=== PATIENT | female | born 1990 | race Caucasian/White ===

== ENCOUNTER 2016-08-10 16:57 | Emergency (ER) | payer OTHER ==
[~2016-08-10] VITALS: Ht 177.8 cm; Wt 122.2 kg
[~2016-08-10 16:57] MED LIST: ALBU1AER9 INH
[2016-08-10 16:59] VITALS: Ht 177.8 cm; Wt 122.2 kg
[2016-08-10] MEDS ORDERED: ONDANSETRON INJ 2 MG/ML 2 ML VIAL IV STA (17:15)
[2016-08-10] MEDS ORDERED: MoRPHine SULFATE 10 MG/ML CARP/VIAL IV STA (17:15)
[2016-08-10] MEDS ORDERED: KETOROLAC TROMETHAMINE 30 MG/ML VIAL IV STA (17:15)
[2016-08-10] MEDS ORDERED: SODIUM CHLORIDE 0.9% 1000ML 1,000 ML IV STA (17:15)
[2016-08-10 17:49] LABS: BASO % 0.3 %; BASO ABS # 0.02 K/uL (0-0.2); COMPLETE YES; EOS % 1.1 %; IG% 0.3 %; LYMPH % 29.8 %; LYMPH ABS # 1.96 K/uL (1.2-3.4); MEAN CORPUSCULAR HEMOGLOBIN 28.7 pg (25-34); MEAN CORPUSCULAR HGB CONC 32.9 g/dl (32-36); MEAN PLATELET VOLUME 11.1 fL (7.4-10.4); MONO % 6.8 %; NEUT % 61.7 %; PLATELET COUNT 230 K/uL (130-400); RED BLOOD COUNT 4.71 M/uL (4.2-5.4); WHITE BLOOD COUNT 6.57 K/uL (4.8-10.8)
[2016-08-10 18:00] LABS: URINE APPEARANCE CLOUDY (CLEAR); URINE BILIRUBIN NEG (NEG); URINE COLOR DK YELLOW; URINE EPITHELIAL CELL AUTO >30 /lpf (0-5); URINE NITRITE NEG (NEG); URINE PH 5.5 (4.5-7.5); URINE SPECIFIC GRAVITY 1.028 (1.000-1.030); UROBILINOGEN NEG (NEG)
[2016-08-10] MEDS ORDERED: MoRPHine SULFATE 4 MG/ML 1 ML CARP\\VIAL ONE (18:00)
[2016-08-10] MEDS ORDERED: MoRPHine SULFATE 2 MG/ML CARP ONE (18:01)
[2016-08-10 18:03] LABS: MANUAL MICROSCOPIC REQUIRED? NO; REVIEW REQ? YES
--- NOTE | 2016-08-10 18:04 | DIAGNOSTIC IMAGING REPORT ---
CT SCAN OF THE ABDOMEN AND PELVIS WITHOUT IV CONTRAST CLINICAL HISTORY: Right flank pain. COMPARISON STUDY: Abdominal CT dated 08/14/2013. TECHNIQUE: CT scan of the abdomen and pelvis is performed from the lung bases to the proximal femora. Images are reviewed in the axial, sagittal, and coronal planes. IV contrast was not administered for this examination. Automated dose control exposure was utilized. The examination is degraded by large body habitus, and by streak artifact from the body wall abutting the CT gantry. CT DOSE: 2202.03 mGy.cm FINDINGS: Lung bases: The heart is normal in size and without pericardial effusion. The lung bases are clear noting dependent atelectasis. Liver: The unenhanced liver is normal in size, contour, and attenuation. There is no intrahepatic biliary ductal dilatation. Gallbladder: Unremarkable. Spleen: Normal in size and attenuation. Pancreas: Unremarkable. Adrenal glands: Unremarkable. Kidneys: The unenhanced kidneys are normal in size and without hydronephrosis. There are no renal calculi identified. There is no evidence of contour deforming renal mass lesion. Abdominal vasculature: The abdominal aorta is normal in course and caliber. Bowel: The small bowel and colon are normal in course and caliber. The appendix is well-visualized and normal. Peritoneum: There is no intraperitoneal free air or abdominal ascites. There is a small fat-containing umbilical hernia. Lymphadenopathy: None. Pelvic viscera: The bladder, uterus, and adnexa are normal as visualized. There are bilateral ovarian follicles. A 4.0 cm cyst is noted in the left ovary. Skeletal structures: No lytic or blastic lesions are seen. Mild sclerotic change is noted involving the sacroiliac joints. IMPRESSION: 1. There are no acute infectious or inflammatory findings in the abdomen or pelvis. 2. A 4.0 cm cyst is incidentally noted in the left ovary. Electronically signed by: Jose Burger M.D. 08/10/2016 6:03 PM Dictated Date/Time: 08/10/2016 5:56 PM
[2016-08-10 18:12] LABS: ZZUR CULT IF INDIC CLEAN CATCH YES
[2016-08-10 18:18] LABS: CALCIUM 8.8 mg/dl (8.5-10.1); CREATININE 0.82 mg/dl (0.60-1.20); POTASSIUM 3.3 mmol/L (3.5-5.1)
[2016-08-10] MEDS ORDERED: ONDANSETRON HOME PACK 4MG OD TAB PO ONE (18:30)
[2016-08-10] MEDS ORDERED: NITR-5 PO (18:33)
--- NOTE | 2016-08-10 18:33 | EMERGENCY ROOM VISIT NOTE ---
History First contact with patient: 17:09 Chief Complaint: GI ASSESSMENT Stated Complaint: PAIN IN LOWR RT SIDE OF BACK Nursing Triage Summary: right abdominal pain for the past several days. denies n/v/d. History of Present Illness The patient is a 25 year old female who presents to the Emergency Room with complaints of right lower back pain for the past several days but it is worse today. The patient denies any abdominal pain. She does admit to some nausea but denies any vomiting. The patient denies any fever. The patient admits to urinary frequency but denies any urgency dysuria or hematuria. The patient denies any trauma to her back. The patient does have a history of ovarian cyst. The patient denies any family history of kidney stones or any personal history of kidney stones. The patient has not had any abdominal surgeries. She currently rates the pain at an 8 out of 10. Review of Systems 10 system review was performed and was negative unless stated otherwise history of present illness. Past Medical/Surgical History Medical Problems: (1) Abdominal pain (2) Asthma (3) Bronchitis (4) Face chilel (5) Migraines (6) Ovarian cyst (7) Pyelonephritis (8) Tonsillectomy (9) UTI Social History Smoking Status: Never Smoker Alcohol Use: none Drug Use: none Marital Status: single Housing Status: lives with family Occupation Status: employed Current/Historical Medications Scheduled PRN Albuterol (Proair Hfa), 2 PUFFS INH Q4H PRN for Shortness of Breath Allergies Coded Allergies: Amoxicillin (Verified Allergy, Unknown, AMOXICILLIN/PENICILLIN, 03/13/15) Penicillins (Verified Allergy, Unknown, HIVES, 03/13/15) Codeine (Verified Adverse Reaction, Mild, NAUSEA, 03/13/15) Physical Exam Vital Signs Date Time Temp Pulse Resp B/P Pulse Ox O2 Delivery O2 Flow Rate FiO2 08/10/16 16:59 36.7 73 18 136/89 99 Room Air Physical Exam GENERAL: 25-year-old obese white female appears in no acute distress. MENTAL Status: Alert and oriented 3. EYES: No icterus noted MOUTH: Mucosa is moist NECK: Supple, no lymphadenopathy noted. No carotid bruits noted. LUNGS: Clear auscultation without wheezes rales or rhonchi. CARDIAC: Regular rate and rhythm without murmur. Pulses is full and equal throughout. BACK: No CVA tenderness noted. ABDOMEN: Positive bowel sounds all 4 quadrants. Soft, nontender to palpation without organomegaly or masses. LUMBAR SPINE: No gross bony deformity noted. The patient is nontender to palpation over the spinous processes in the paravertebral region. Full range of motion. EXTREMITIES: No cyanosis or edema noted. Medical Decision & Procedures ER Provider Diagnostic Interpretation: CT SCAN OF THE ABDOMEN AND PELVIS WITHOUT IV CONTRAST CLINICAL HISTORY: Right flank pain. COMPARISON STUDY: Abdominal CT dated 08/14/2013. TECHNIQUE: CT scan of the abdomen and pelvis is performed from the lung bases to the proximal femora. Images are reviewed in the axial, sagittal, and coronal planes. IV contrast was not administered for this examination. Automated dose control exposure was utilized. The examination is degraded by large body habitus, and by streak artifact from the body wall abutting the CT gantry. CT DOSE: 2202.03 mGy.cm FINDINGS: Lung bases: The heart is normal in size and without pericardial effusion. The lung bases are clear noting dependent atelectasis. Liver: The unenhanced liver is normal in size, contour, and attenuation. There is no intrahepatic biliary ductal dilatation. Gallbladder: Unremarkable. Spleen: Normal in size and attenuation. Pancreas: Unremarkable. Adrenal glands: Unremarkable. Kidneys: The unenhanced kidneys are normal in size and without hydronephrosis. There are no renal calculi identified. There is no evidence of contour deforming renal mass lesion. Abdominal vasculature: The abdominal aorta is normal in course and caliber. Bowel: The small bowel and colon are normal in course and caliber. The appendix is well-visualized and normal. Peritoneum: There is no intraperitoneal free air or abdominal ascites. There is a small fat-containing umbilical hernia. Lymphadenopathy: None. Pelvic viscera: The bladder, uterus, and adnexa are normal as visualized. There are bilateral ovarian follicles. A 4.0 cm cyst is noted in the left ovary. Skeletal structures: No lytic or blastic lesions are seen. Mild sclerotic change is noted involving the sacroiliac joints. IMPRESSION: 1. There are no acute infectious or inflammatory findings in the abdomen or pelvis. 2. A 4.0 cm cyst is incidentally noted in the left ovary. Electronically signed by: Jose Burger M.D. 08/10/2016 6:03 PM Dictated Date/Time: 08/10/2016 5:56 PM Laboratory Results 08/10/16 17:30 Red Blood Count 4.71, Mean Corpuscular Volume 87.0, Mean Corpuscular Hemoglobin 28.7, Mean Corpuscular Hemoglobin Concent 32.9, Mean Platelet Volume 11.1, Neutrophils (%) (Auto) 61.7, Lymphocytes (%) (Auto) 29.8, Monocytes (%) (Auto) 6.8, Eosinophils (%) (Auto) 1.1, Basophils (%) (Auto) 0.3, Neutrophils # (Auto) 4.05, Lymphocytes # (Auto) 1.96, Monocytes # (Auto) 0.45, Eosinophils # (Auto) 0.07, Basophils # (Auto) 0.02 08/10/16 17:30 Test 08/10/16 17:30 White Blood Count 6.57 K/uL (4.8-10.8) Red Blood Count 4.71 M/uL (4.2-5.4) Hemoglobin 13.5 g/dL (12.0-16.0) Hematocrit 41.0 % (37-47) Mean Corpuscular Volume 87.0 fL (80-100) Mean Corpuscular Hemoglobin 28.7 pg (25-34) Mean Corpuscular Hemoglobin Concent 32.9 g/dl (32-36) Platelet Count 230 K/uL (130-400) Mean Platelet Volume 11.1 fL (7.4-10.4) Neutrophils (%) (Auto) 61.7 % Lymphocytes (%) (Auto) 29.8 % Monocytes (%) (Auto) 6.8 % Eosinophils (%) (Auto) 1.1 % Basophils (%) (Auto) 0.3 % Neutrophils # (Auto) 4.05 K/uL (1.4-6.5) Lymphocytes # (Auto) 1.96 K/uL (1.2-3.4) Monocytes # (Auto) 0.45 K/uL (0.11-0.59) Eosinophils # (Auto) 0.07 K/uL (0-0.5) Basophils # (Auto) 0.02 K/uL (0-0.2) RDW Standard Deviation 43.1 fL (36.4-46.3) RDW Coefficient of Variation 13.5 % (11.5-14.5) Immature Granulocyte % (Auto) 0.3 % Immature Granulocyte # (Auto) 0.02 K/uL (0.00-0.02) Urine Color DK YELLOW Urine Appearance CLOUDY (CLEAR) Urine pH 5.5 (4.5-7.5) Urine Specific [place] 1.028 (1.000-1.030) Urine Protein NEG (NEG) Urine Glucose (UA) NEG (NEG) Urine Ketones NEG (NEG) Urine Occult Blood NEG (NEG) Urine Nitrite NEG (NEG) Urine Bilirubin NEG (NEG) Urine Urobilinogen NEG (NEG) Urine Leukocyte Esterase SMALL (NEG) Urine WBC (Auto) 10-30 /hpf (0-5) Urine RBC (Auto) 0-4 /hpf (0-4) Urine Hyaline Casts (Auto) 5-10 /lpf (0-5) Urine Epithelial Cells (Auto) >30 /lpf (0-5) Urine Bacteria (Auto) 2+ (NEG) Anion Gap 12.0 mmol/L (3-11) Est Creatinine Clear Calc Drug Dose 146.4 ml/min Estimated GFR () 113.7 Estimated GFR (Non- 98.1 BUN/Creatinine Ratio 12.0 (10-20) Calcium Level 8.8 mg/dl (8.5-10.1) Total Bilirubin 0.8 mg/dl (0.2-1) Direct Bilirubin 0.1 mg/dl (0-0.2) Aspartate Amino Transf (AST/SGOT) 14 U/L (15-37) Alanine Aminotransferase (ALT/SGPT) 22 U/L (12-78) Alkaline Phosphatase 82 U/L (45-117) Total Protein 7.7 gm/dl (6.4-8.2) Albumin 4.0 gm/dl (3.4-5.0) Lipase 123 U/L (73-393) Medications Administered Medications (Trade) Dose Ordered Sig/Edy Route Start Time Stop Time Status Last Admin Dose Admin Sodium Chloride (Nss 1000ml) 1,000 ml @ 999 mls/hr Q1H1M STAT IV 08/10/16 17:15 08/10/16 18:15 DC 08/10/16 18:05 999 MLS/HR Ondansetron HCl (Zofran Inj) 4 mg NOW STAT IV 08/10/16 17:15 08/10/16 17:17 DC 08/10/16 18:05 4 MG Ketorolac Tromethamine (Toradol Inj) 30 mg NOW STAT IV 08/10/16 17:15 08/10/16 17:17 DC 08/10/16 18:07 30 MG Morphine Sulfate (MoRPHine SULFATE INJ) 4 mg STK-MED ONCE .ROUTE 08/10/16 18:00 08/10/16 18:03 DC 08/10/16 18:09 4 MG Morphine Sulfate (MoRPHine SULFATE INJ) 2 mg STK-MED ONCE .ROUTE 08/10/16 18:01 08/10/16 18:03 DC 08/10/16 18:08 2 MG ED Course The patient was evaluated. IV access was obtained. The patient was given 1 L normal saline wide-open. She was given Toradol 30 mg IV, morphine 6 mg IV and Zofran 4 mg IV. CBC and differential, renal profile, LFTs and lipase levels was ordered. Labs are reviewed and were unremarkable. Urinalysis was ordered. Urine revealed positive leukocytes and bacteria. Culture is pending. CT stone study was ordered and interpreted by the radiologist as above without any acute findings. There was an incidental finding of a 4 cm left ovarian cyst. The patient was informed of all findings including this cyst on her left ovary. The patient was aware she already had 1 but was unaware of the size. The patient was given a Zofran home pack. She was given Macrobid 100 mg by mouth while in the emergency room. The patient was discharged home in stable condition. Medical Decision Differential diagnosis include muscular strain, UTI, pyelonephritis, kidney stone, ovarian cyst Impression Primary Impression: UTI Departure Information Dispostion Home / Self-Care Condition GOOD Prescriptions Nitrofurantoin Monohyd Macrocr (Macrobid) 100 Mg Cap 100 MG PO BID for 7 Days, #14 CAP Prov: Nazia Thompson PA-C 08/10/16 Referrals No Doctor, Assigned (PCP) Forms HOME CARE DOCUMENTATION FORM, IMPORTANT VISIT INFORMATION Patient Instructions ED UTI Cystitis Female, My [facility] Additional Instructions Push fluids. Take Zofran as needed for nausea. Take Macrobid as prescribed. Call in 36 hours for urine culture results if we do not call you. If symptoms persist or worsen, follow with family doctor or return to ER.
[2016-08-10] MEDS ORDERED: NITROFURANTOIN MONOHYDRATE 100 MG CAP PO STA (18:34)
[2016-08-10] MEDS ORDERED: ACET-1256 PO (18:45)
[2016-08-10 19:00] VITALS: BP 126/81; PULSE 77; TEMP 36.7; O2SAT 99
== END 2016-08-10 19:00 | disposition home or self-care (01) ==
LOC: C.EDB 16:58
DX: N39.0 Urinary tract infection, site not specified (principal); J45.909 Unspecified asthma, uncomplicated; N83.202 Unspecified ovarian cyst, left side; Z87.440 Personal history of urinary (tract) infections; Z88.0 Allergy status to penicillin; Z88.1 Allergy status to other antibiotic agents; Z88.5 Allergy status to narcotic agent

== ENCOUNTER 2016-11-14 18:52 | Emergency (ER) | payer OTHER ==
[~2016-11-14] VITALS: Ht 177.8 cm; Wt 101.4 kg
[~2016-11-14 18:52] MED LIST changes: +ACET-1256 PO
[2016-11-14 19:00] VITALS: BP 143/89; PULSE 72; TEMP 36.9; O2SAT 100; Ht 177.8 cm; Wt 101.4 kg
[2016-11-14] MEDS ORDERED: TRAM-10 PO (19:27)
[2016-11-14] MEDS ORDERED: TRAMADOL HCL 50 MG HOME PACK PO ONE (19:30)
--- NOTE | 2016-11-14 21:00 | EMERGENCY ROOM VISIT NOTE ---
ED Visit Note First contact with patient: 19:10 CHIEF COMPLAINT: Toothache. HISTORY OF PRESENT ILLNESS: Ms. Quiroz is a 26-year-old white female who ambulates into the ED accompanied by male friend complaining of left mandibular dental pain. She reports a progressive dental pain for that started approximately 3 days ago. Since that time her pain has been constant and has gradually increased in severity. Currently she currently describes her discomfort as a throbbing sensation. Her pain is actually located over the lateral aspect of the left side of the mandible, and not one specific tooth. She rates her discomfort 9/10. Her.is pain does radiate through the teeth, down the lateral aspect of the neck and into the top of the left upper chest. Her pain worsens with chewing and exposure hot and cold foods. She has not identified any alleviating factors related to the pain. She has been using Anbesol and ibuprofen without relief of her discomfort. She denies any associated symptoms including fevers, chills , sweats, facial swelling, sore throat, difficulty swallowing, voice changes, drooling. REVIEW OF SYSTEMS: As noted above in History of Present Illness. 8 body systems were reviewed with this patient and found to be negative unless noted above otherwise. PMH: Asthma, unspecified eye surgery and tonsillectomy. CURRENT MEDICATION: Albuterol, Tylenol. ALLERGIES TO MEDICATION: Penicillin, codeine. SOCIAL HISTORY: Patient is currently employed; she feels safe in her home environment; she denies tobacco use; she admits to alcohol use. PHYSICAL EXAM: Vital Signs: Date Time Temp Pulse Resp B/P Pulse Ox O2 Delivery O2 Flow Rate FiO2 11/14/16 19:00 36.9 72 18 143/89 100 Room Air General: 26 year-old white female in mild to moderate distress due to pain, nontoxic appearing, afebrile and hemodynamically stable. Neurological: Awake, alert and oriented to person, place and time. Answering questions appropriately and following commands. Normal gait. Good hand eye coordination. No focal motor or sensory deficits. Skin: Warm, dry and pink. No soft tissue lesions, rashes, or trauma noted. HEENT: Atraumatic and normocephalic. Oral cavity is moist and pink. Uvula is midline and no abscesses are seen. Airway is patent. Speech is normal. No drooling. No intraoral trauma is noted. Mild dental decay is noted over the left sided molars of the mandible. No abscesses, erythema or edema identified. No cervical or submandibular lymphadenopathy. ED COURSE: Patient is assessed as noted above. Patient is educated about she findings and instructed on her treatment plan; she verbalizes understanding and agreement with this plan. CLINIC IMPRESSION: Dental pain. DISPOSITION: Patient discharged home in stable condition; prior to departure she was reassessed and subjectively reported she was feeling the same. PLAN: Comfort measures were discussed were discussed with the patient including a prescription for Ultram, use of dental wax. Patient was encouraged to followup with personal dentist for definitive care and treatment. Patient was encouraged to return the ED for worsening/uncontrolled pain, facial swelling or fevers or any new/concerning symptoms.
== END 2016-11-14 19:38 | disposition home or self-care (01) ==
LOC: C.EDB 18:52 → C.EDD 19:38
DX: K08.89 Other specified disorders of teeth and supporting structures (principal); J45.909 Unspecified asthma, uncomplicated; Z98.890 Other specified postprocedural states; Z88.0 Allergy status to penicillin; Z88.5 Allergy status to narcotic agent

== ENCOUNTER 2017-06-07 13:17 | Emergency (ER) | payer OTHER ==
[~2017-06-07] VITALS: Ht 177.8 cm; Wt 124.8 kg
[2017-06-07 13:27] VITALS: TEMP 36.9; Ht 177.8 cm; Wt 124.8 kg
[2017-06-07] MEDS ORDERED: KETOROLAC TROMETHAMINE 60 MG/2 ML VIAL IM STA (13:53)
[2017-06-07] MEDS ORDERED: CYCLOBENZAPRINE HCL 10 MG TAB PO STA (13:53)
[2017-06-07] MEDS ORDERED: CYCL10TA6 PO (14:43)
--- NOTE | 2017-06-07 14:44 | EMERGENCY ROOM VISIT NOTE ---
ED Visit Note First contact with patient: 13:31 CHIEF COMPLAINT:Low back pain after lifting injury at work this morning HISTORY OF PRESENT ILLNESS: Patient is a 26-year-old white female who presents to the emergency department for evaluation of left low back pain. She states the pain started this morning at work. 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 She rates her pain a 7/10. She took ibuprofen, and applied icy hot with minimal relief. She is a history of scoliosis, but otherwise denies chronic back pain. The pain is worse with movement, particularly bending over, or standing upright. Denies any bowel or bladder difficulties. There has been no leg numbness or weakness. No recent direct trauma. No vomiting or abdominal pain. REVIEW OF SYSTEMS: Review of systems as per HPI. All other systems reviewed were negative. 10 systems reviewed. PMH: Electronic medical records are reviewed and summarized as above/below. See Problem List. SOCIAL HISTORY: Patient lives at home with her and son. She does not smoke. She is employed. PHYSICAL EXAM: Vital Signs: Reviewed Nurse's notes. MENTAL STATUS: Patient is a well-appearing 26-year-old white female who is awake and alert and seated upright on the gurney in not acute distress. She is guarded with her movements. HEART: Regular rate and rhythm LUNGS: Clear to auscultation ABDOMEN: Soft, non-tender, no masses or organs felt. Bowel sounds normoactive. BACK: Tenderness in the left low thoracic-upper lumbar paraspinous muscles, as well as over the left posterior hemipelvis. Range of motion is limited secondary to discomfort. She has increased pain with flexion, rotation and lateral bending to the left. No tenderness over the spinous processes of the lumbar vertebrae. LEGS: Normal strength including dorsi-flexion and plantar flexion of the great toes and ankles, flexion and extension of the knees and flexion of the hip. Negative bilateral straight leg raising, normal and symmetrical knee and ankle reflexes. Sensation to light touch is intact over the lower extremities. EMERGENCY DEPARTMENT COURSE: Patient was medicated with IM Toradol 60 mg and Flexeril 10 mg orally. On reassessment, she reported that her pain had improved. She rated it a 4/10 at discharge. I suspect she is suffering from a lumbar strain. She has no physical exam findings to indicate acute cord compression or cauda equina syndrome. She does not have any direct trauma to the back and therefore it was not felt that any radiographs were necessary at this time. She has no radicular symptoms. Conservative care measures were discussed. She was discharged home on Flexeril. She will follow closely with her worker's compensation provider. Medication reconciliation: I attest that I have personally reviewed the patient' s current medication list. Blood pressure screening: Patient was found to have a slightly elevated blood pressure due to circumstances. I do not believe that the patient requires hypertension monitoring. Problem List Medical Problems: (1) Abdominal pain Status: Resolved (2) Acute low back pain Status: Resolved (3) Ankle sprain Status: Resolved (4) Asthma Status: Chronic (5) Bronchitis Status: Resolved (6) Face chilel Status: Resolved (7) Migraines Status: Chronic (8) Ovarian cyst Status: Resolved (9) Pain, dental Status: Resolved (10) Pyelonephritis Status: Resolved (11) Tonsillectomy Status: Resolved (12) UTI Status: Resolved Current/Historical Medications Scheduled PRN Cyclobenzaprine Hcl (Flexeril), 10 MG PO TID PRN for Muscle Spasms Allergies Coded Allergies: Amoxicillin (Verified Allergy, Unknown, AMOXICILLIN/PENICILLIN, 06/07/17) Penicillins (Verified Allergy, Unknown, HIVES, 06/07/17) Codeine (Verified Adverse Reaction, Mild, NAUSEA, 06/07/17) Vital Signs Date Time Temp Pulse Resp B/P (MAP) Pulse Ox O2 Delivery O2 Flow Rate FiO2 06/07/17 15:00 73 16 151/93 97 06/07/17 13:27 36.9 83 16 141/83 99 Room Air Medications Administered Medications (Trade) Dose Ordered Sig/Edy Route Start Time Stop Time Status Last Admin Dose Admin Ketorolac Tromethamine (Toradol Inj) 60 mg NOW STAT IM 06/07/17 13:53 06/07/17 13:54 DC 06/07/17 14:00 60 MG Cyclobenzaprine HCl (Flexeril Tab) 10 mg NOW STAT PO 06/07/17 13:53 06/07/17 13:54 DC 06/07/17 13:59 10 MG Departure Information Impression Primary Impression: Back strain Additional Impression: Work related injury Prescriptions Cyclobenzaprine Hcl (FLEXERIL) 10 Mg Tab 10 MG PO TID Y for Muscle Spasms, #30 TAB Prov: Ruth Cosme PA 06/07/17 Referrals No Doctor, Assigned (PCP) Patient Instructions My [facility] Additional Instructions DO NOT drive, drink alcohol, operate machinery, or perform dangerous activities today. You were given medications in the ER that can affect your ability to safely function or operate a vehicle. Cyclobenzaprine (Flexeril) 10 mg: Take 1 pills 3 times daily as needed for muscle spasms.. Avoid alcohol, operating machinery or dangerous equipment, working on ladders or roofs, DRIVING, or situations where being under the influence may be dangerous. Ibuprofen(Motrin, Advil) may be used for fever or pain. Use 600mg every six hours as needed. Take with food. Avoid using more than 2400mg in a 24 hour period. Do not use 2400mg per day for more than three consecutive days without physician direction. Prolonged inappropriate use can lead to stomach upset or ulcers. This medication can be taken if you need to drive, work, or perform activities which may be dangerous when taking narcotic pain medication. (AND/OR) Acetaminophen(Tylenol) may be used for fever or pain. Use 1000mg every six hours as needed. Avoid using more than 3000mg in a 24 hour period. This medication can be taken if you need to drive, work, or perform activities which may be dangerous when taking narcotic pain medication. Rest and avoid heavy lifting until your symptoms resolve and then gradually return to full activity. A good rule of thumb is if it hurts your back to perform a certain activity, then it should be avoided until you are healthy again. A heating pad, warm compresses, or a hot shower may help with tight muscles and can be done several times a day as needed. Continue current medications. Return to the ER immediately for any numbness, tingling, severe pain, loss of control of your bowels or bladder, inability to walk, or as needed. Follow up with your worker's compensation physician within 3-5 days for a recheck of your current condition. Problem Qualifiers
[2017-06-07 15:00] VITALS: BP 151/93; PULSE 73; O2SAT 97
== END 2017-06-07 15:01 | disposition home or self-care (01) ==
LOC: C.EDB 13:19 → C.EDD 15:01
DX: S39.012A Strain of muscle, fascia and tendon of lower back, initial encounter (principal); X50.9XXA Other and unspecified overexertion or strenuous movements or postures, initial encounter; Y93.F9 Activity, other caregiving; Y99.0 Civilian activity done for income or pay; Y92.129 Unspecified place in nursing home as the place of occurrence of the external cause; J45.909 Unspecified asthma, uncomplicated; Z87.440 Personal history of urinary (tract) infections; Z90.89 Acquired absence of other organs

== ENCOUNTER 2019-01-10 15:54 | Inpatient (IN) ==
[2019-01-10] MEDS ORDERED: KETOROLAC TROMETHAMINE 15 MG/ML VIAL IV ONE (17:50)
[2019-01-10] MEDS ORDERED: ONDANSETRON INJ 2 MG/ML 2 ML VIAL IV STA (17:50)
--- NOTE | 2019-01-10 18:00 | XRay Report ---
XR chest 1V portable CLINICAL HISTORY: Chest pain. COMPARISON STUDY: Chest radiograph and chest CT May 26, 2011. FINDINGS: Lung volumes are diminished. There is no pneumothorax or pleural effusion. There is no cons olidation or evidence for pulmonary edema. Cardiomediastinal silhouette is normal. IMPRESSION: No acute cardiopulmonary findings. Electronically signed by: Wilberto Daniels M.D. 01/10/2019 5:59 PM
[2019-01-10] MEDS: HYDROmorphone INJ 0.5 MG/0.5 ML SYR IV PRN ×2 (18:19→21:24)
[2019-01-10 18:40] LABS: Basophils # (auto) 0.03 K/uL (0-0.2); Basophils % (auto) 0.4 %; Eosinophils # (auto) 0.12 K/uL (0-0.5); Eosinophils % (auto) 1.5 %; Hematocrit (blood only) 41.8 % (37-47); Hemoglobin 13.9 g/dL (12.0-16.0); Immature Granulocytes # (auto) 0.02 K/uL (0.00-0.02); Immature Granulocytes % (auto) 0.3 %; Lymphocytes # (auto) 1.87 K/uL (1.2-3.4); Lymphocytes % (auto) 23.7 %; Mean Corpuscular Hgb Conc 33.3 g/dL (32-36); Mean Corpuscular Volume 90.5 fL (80-100); Mean Platelet Volume 10.6 fL (7.4-10.4); Monocytes # (auto) 0.78 K/uL (0.11-0.59); Monocytes % (auto) 9.9 %; Neutrophils # (auto) 5.06 K/uL (1.4-6.5); Neutrophils % (auto) 64.2 %; Platelet Count 231 K/uL (130-400); RDW Coefficient of Variation 13.8 % (11.5-14.5); RDW Standard Deviation 45.3 fL (36.4-46.3); Red Blood Count 4.62 M/uL (4.2-5.4); White Blood Count 7.88 K/uL (4.8-10.8)
[2019-01-10 18:59] LABS: Alanine Aminotransferase 26 U/L (12-78); Albumin Level 3.6 gm/dl (3.4-5.0); Aspartate Aminotransferase 12 U/L (15-37); BUN Creatinine Ratio 17.6 (10-20); Blood Urea Nitrogen 13 mg/dl (7-18); Calcium 8.9 mg/dl (8.5-10.1); Carbon Dioxide 28 mmol/L (21-32); Chloride 104 mmol/L (98-107); Creatinine Clr Calc Pharmacy 150.8 ml/min; Est GFR (Non-African American) 108.7; Glucose 90 mg/dl (70-99); Potassium 3.8 mmol/L (3.5-5.1); Sodium 138 mmol/L (136-145)
[2019-01-10 19:04] LABS: Albumin Globulin Ratio 0.9 (0.9-2); Alkaline Phosphatase 90 U/L (45-117); Bilirubin,Total 0.7 mg/dl (0.2-1); Total Protein 7.6 gm/dl (6.4-8.2); Troponin I < 0.015 ng/ml (0-0.045)
[2019-01-10 19:44] LABS: Pregnancy Test, Serum Negative (Negative)
[2019-01-10] MEDS ORDERED: OPTIRAY 320 125ml IV PRN (19:49)
--- NOTE | 2019-01-10 20:01 | CT Scan Report ---
CT angio chest PE protocol CLINICAL HISTORY: 28 years-old Female presenting with Left chest pain, +dimer, ? PE. TECHNIQUE: Multidetector CT angiography of the chest was performed after administration of intravenou s contrast. 3-D volumetric and/or maximum intensity projection (MIP) images were subsequently reconst ructed for review. IV contrast: 116 mL of Optiray 320. One or more dose lowering techniques were used consistent with the principles of ALARA (as low as reasonably achievable), including automatic expos ure control, mA or kV adjustment to individual patient size, and/or use of iterative reconstruction. COMPARISON: 05/26/2011. CT DOSE (mGy.cm): The estimated cumulative dose is 519.72 mGy.cm. FINDINGS: Pl[employer]ator topogram: Unremarkable. Pulmonary vasculature: The study is suboptimal for the assessment of the pulmonary vascular tree secondary to timing of the contrast bolus and respiratory motion artifact. Acute segmental and subsegmental pulmonary emboli in the lower lobes. Main pulmonary artery is not enlarged. No flattening of the interventricular septum. No intracardiac filling defect. No reflux of contrast into the hepatic veins. Remaining chest: Soft tissues: Normal thyroid and thoracic inlet. No axillary, supraclavicular, mediastinal, or hilar lymphadenopathy. Normal aorta. Normal heart size. No pericardial or pleural effusion. Upper abdomen n ormal. Lungs and airways: No pneumothorax. Central airways patent. Pulmonary arteries are not significantly enlarged relative to adjacent bronchi. No interlobular septal thickening. Patchy groundglass opacity with mild mosaic attenuation. This may in part relate to the phase of respiration though a vascular e tiology could also have this appearance. More nodular patchy infiltration in the lingula with a focal solid round 5 mm nodule (series 4 image 65), previously 3 mm. Musculoskeletal: Normal osseous structures. IMPRESSION: 1. Acute segmental and subsegmental pulmonary emboli in the bilateral lower lobes. No CT evidence of right heart strain. 2. Patchy groundglass opacities and/or mosaic attenuation may relate to the presence of pulmonary em boli and/or the phase of respiration. 3. More nodular patchy infiltrate in the lingula with a focal solid 5 mm nodule. Notably, Fleischner Society 2017 criteria do not apply in the setting of a patient less than 35 years of age. Follow-up on clinical grounds. This may represent an infectious or inflammatory etiology. Electronically signed by: Gustavo Gotti M.D. 01/10/2019 7:59 PM
[2019-01-10] MEDS ORDERED: ENOXAPARIN INJ 120 MG/0.8 ML SYR SQ ONE (20:51)
[2019-01-10 21:16] LABS: Partial Thromboplastin Time 27.4 Seconds (21.0-31.0)
--- NOTE | 2019-01-10 23:08 | History & Physical Report ---
Date of Service January 10, 2019 Assessment & Plan (1) Pulmonary embolism, bilateral: (present on admission) Patient presented to ED with chest pain shortness of breath. CTA of chest demonstrated bilateral segmental subsegmental pulmonary emboli. No clinical evidence of RV strain. Recent travel to [place], but duration of trip would seem to be too short to provoke VTE. No other apparent risk factors for VTE. No known family history of VTE. Hypercoagulable evaluation was ordered in the ED before receiving anticoagulants. Check urine test. Check venous duplex lower extremities. Received subcutaneous enoxaparin in the ED which will be continued pending review of oral options. BMI is around 35. Recommendations for use of DOACs and obesity vary with different cutoffs. Seems the most guidelines indicate that DOACs are safe to use if BMI is less than 40. Discuss options with Pharmacy or Hematology and review patient's formulary coverage. (2) Pulmonary nodule: 5 mm lingular nodule noted on CT of chest. Non-smoker. No history of malignancy. Fleischner Society 2017 guidelines do not apply to patients under the age of 35. Would be prudent to check follow-up CT, perhaps in 6 months. (3) Asthma: Stable. (4) DVT prophylaxis: VTE prophylaxis not indicated due to acute VTE as discussed above. (5) Discharge planning issues: Anticipated discharge to home. Family Medicine follow-up with Dr. Julissa Julian. History of Present Illness Chief Complaint: chest pain Primary Care Provider: Julissa Julian, 28-year-old female followed by Dr. Julissa Julian. She enjoys relatively good health except for a few problems as noted below. A few days prior to admission she noted some mid chest pressure. Today she experience more severe chest pain that involved the left shoulder/left chest and was worse with inspiration. Rates the pain at 9 on a 0-to-10 scale. Dyspneic at rest and with exertion. No fever or cough. No leg pain or swelling. Recently traveled to [place] by car; no long trips. Non-smoker. She does not use any control pills or other hormonal preparations. No family history of VTE. Allergies Allergy/AdvReac Type Severity Reaction Status Date / Time amoxicillin Allergy Unknown Hives Verified 01/10/19 17:59 Penicillins Allergy Unknown Hives Verified 01/10/19 17:59 codeine AdvReac Mild Nausea Verified 01/10/19 17:59 Home Medications Home Medications Medication Instructions Recorded Confirmed Type cholecalciferol (vitamin D3) 1,000 unit PO DAILY 08/15/18 01/10/19 History [Vitamin D3] ranitidine HCl 150 mg PO BID 08/15/18 01/10/19 History sertraline 50 mg PO DAILY 08/15/18 01/10/19 History Past Med/Surg History Medical History GERD (gastroesophageal reflux disease) (Chronic) Asthma (Chronic) Migraine (Chronic) Pyelonephritis (Resolved) Ankle sprain (Resolved) Family History Mother Heart disease Diabetes Father Heart disease Diabetes Other No pertinent family history Social History Preferred Language: Albanian Communication Ability: Effective Motor Vehicle Lecturer Required: No Beliefs That Will Affect Care: None Current Living Situation: Spouse Other Information That Helps Us Care for You: No Feels Safe at Home: Yes Safety Concerns: Feels Safe At This Time Smoking Status: Never smoker Hx Alcohol Use: Yes Hx Substance Use: No Review of Systems Constitutional: + weight loss (intentional); no fever Eyes: no diplopia and no worsening vision Ear, Nose, Mouth, Throat: no nasal congestion, no sinus pain/pressure and no sore throat Respiratory: as per Subjective / HPI Cardiovascular: as per Subjective / HPI Gastrointestinal: no nausea, no vomiting, no constipation, no diarrhea/loose stools, no blood in stools and no melena Genitourinary: no dysuria and no hematuria Musculoskeletal: no joint pain and no myalgia Integumentary: no rash and no new lesions Neurologic: + headache(s) Endocrine: no polydipsia and no polyuria Hematologic / Lymphatic: no easy bleeding, no easy bruising and no lymphadenopathy Physical Exam Constitutional: WD/WN, vitals as above no acute distress Eyes: PERRL, conjunctivae normal, anicteric sclerae ENMT: external ear and nose normal, oropharynx normal Neck: trachea midline, no thyromegaly Respiratory: normal respiratory effort, lungs clear to auscultation Cardiovascular: Rate/Rhythm: regular rate Heart Sounds: no gallop, no murmur and no cardiac rub Vessels: no JVD Extremities: normal capillary refill; no calf tenderness and no edema Gastrointestinal (Abdomen): normal bowel sounds, soft, nontender, no hepatosplenomegaly Musculoskeletal: Head/Neck/Chest: neck supple Extremities: strength 5/5 throughout; no cyanosis and no clubbing Skin: no rashes, warm and dry Neurologic: PERRL, EOMI no facial palsy no dysarthria or aphasia patellar DTR's 2/2 bilat Psychiatric: Orientation: alert and oriented x 3 Affect: euthymic affect Lymphatic: no cervical lymphadenopathy Results & Data Vital Signs (Past 12 Hours) Vital Signs Temp Pulse Pulse Resp BP BP Pulse Ox 01/10/19 22:53 79 20 111/79 98 01/10/19 21:00 87 20 123/81 99 01/10/19 19:59 82 18 122/82 99 01/10/19 18:00 78 18 116/89 100 01/10/19 17:45 100 01/10/19 16:05 36.7 C 93 H 20 145/84 H 100 Laboratory Results Laboratory Results - last 24 hr 01/10/19 01/10/19 01/10/19 18:14 18:14 18:14 WBC 7.88 RBC 4.62 Hgb 13.9 Hct 41.8 MCV 90.5 MCH 30.1 MCHC 33.3 RDW Std Deviation 45.3 RDW Coeff of Arnoldo 13.8 Plt Count 231 MPV 10.6 H Immature Gran % (Auto) 0.3 Neut % (Auto) 64.2 Lymph % (Auto) 23.7 [place] % (Auto) 9.9 Eos % (Auto) 1.5 Baso % (Auto) 0.4 Immature Gran # (Auto) 0.02 Neut # (Auto) 5.06 Lymph # (Auto) 1.87 [place] # (Auto) 0.78 H Eos # (Auto) 0.12 Baso # (Auto) 0.03 PT INR APTT PTT Ratio POC D-Dimer Hexagonal Phase Confirm Protein C Activity Protein S Activity Antithrombin III Activ Factor V Leiden Mutat Factor V Leiden Interp Sodium 138 Potassium 3.8 Chloride 104 Carbon Dioxide 28 Anion Gap 6.0 BUN 13 Creatinine 0.74 Est Cr Clr Drug Dosing 150.8 Est GFR ( Amer) 126.0 Est GFR (Non-Af Amer) 108.7 BUN/Creatinine Ratio 17.6 Glucose 90 Calcium 8.9 Total Bilirubin 0.7 AST 12 L ALT 26 Alkaline Phosphatase 90 Troponin I < 0.015 Total Protein 7.6 Albumin 3.6 Globulin 4.0 Albumin/Globulin Ratio 0.9 Lipase 123 Homocysteine HCG, Qual Negative Beta-2-GPI IgG Ab Beta-2-GPI IgA Ab Beta-2-GPI IgM Ab Anti-Cardiolipin IgG Ab Anti-Cardiolipin IgA Ab Anti-Cardiolipin IgM Ab Prothrombin Gene Mutate Prothromb Gene Comment 01/10/19 01/10/19 01/10/19 18:14 18:25 21:19 WBC RBC Hgb Hct MCV MCH MCHC RDW Std Deviation RDW Coeff of Arnoldo Plt Count MPV Immature Gran % (Auto) Neut % (Auto) Lymph % (Auto) [place] % (Auto) Eos % (Auto) Baso % (Auto) Immature Gran # (Auto) Neut # (Auto) Lymph # (Auto) [place] # (Auto) Eos # (Auto) Baso # (Auto) PT 10.0 INR 1.0 APTT 27.4 PTT Ratio 1.0 POC D-Dimer > 450 H* Hexagonal Phase Confirm Pending Protein C Activity Pending Protein S Activity Pending Antithrombin III Activ Pending Factor V Leiden Mutat Pending Factor V Leiden Interp Pending Sodium Potassium Chloride Carbon Dioxide Anion Gap BUN Creatinine Est Cr Clr Drug Dosing Est GFR ( Amer) Est GFR (Non-Af Amer) BUN/Creatinine Ratio Glucose Calcium Total Bilirubin AST ALT Alkaline Phosphatase Troponin I Total Protein Albumin Globulin Albumin/Globulin Ratio Lipase Homocysteine HCG, Qual Beta-2-GPI IgG Ab Pending Beta-2-GPI IgA Ab Pending Beta-2-GPI IgM Ab Pending Anti-Cardiolipin IgG Ab Pending Anti-Cardiolipin IgA Ab Pending Anti-Cardiolipin IgM Ab Pending Prothrombin Gene Mutate Pending Prothromb Gene Comment Pending 01/10/19 21:19 WBC RBC Hgb Hct MCV MCH MCHC RDW Std Deviation RDW Coeff of Arnoldo Plt Count MPV Immature Gran % (Auto) Neut % (Auto) Lymph % (Auto) [place] % (Auto) Eos % (Auto) Baso % (Auto) Immature Gran # (Auto) Neut # (Auto) Lymph # (Auto) [place] # (Auto) Eos # (Auto) Baso # (Auto) PT INR APTT PTT Ratio POC D-Dimer Hexagonal Phase Confirm Protein C Activity Protein S Activity Antithrombin III Activ Factor V Leiden Mutat Factor V Leiden Interp Sodium Potassium Chloride Carbon Dioxide Anion Gap BUN Creatinine Est Cr Clr Drug Dosing Est GFR ( Amer) Est GFR (Non-Af Amer) BUN/Creatinine Ratio Glucose Calcium Total Bilirubin AST ALT Alkaline Phosphatase Troponin I Total Protein Albumin Globulin Albumin/Globulin Ratio Lipase Homocysteine Pending HCG, Qual Beta-2-GPI IgG Ab Beta-2-GPI IgA Ab Beta-2-GPI IgM Ab Anti-Cardiolipin IgG Ab Anti-Cardiolipin IgA Ab Anti-Cardiolipin IgM Ab Prothrombin Gene Mutate Prothromb Gene Comment Diagnostic Findings PORTABLE CHEST X-RAY IMPRESSION: No acute cardiopulmonary findings. Electronically signed by: Wilberto Daniels M.D. 01/10/2019 5:59 PM CTA CHEST IMPRESSION: 1. Acute segmental and subsegmental pulmonary emboli in the bilateral lower lobes. No CT evidence of right heart strain. 2. Patchy groundglass opacities and/or mosaic attenuation may relate to the presence of pulmonary emboli and/or the phase of respiration. 3. More nodular patchy infiltrate in the lingula with a focal solid 5 mm nodule. Notably, Fleischner Society 2017 criteria do not apply in the setting of a patient less than 35 years of age. Follow-up on clinical grounds. This may represent an infectious or inflammatory etiology. Electronically signed by: Gustavo Gotti M.D. 01/10/2019 7:59 PM ECG Additional Comments: EKG performed at 1805 reviewed and demonstrated normal sinus rhythm at 80/minute, baseline artifact, T wave inversions lead III. Code Status & VTE Plan VTE Prophylaxis Plan VTE Prophylaxis will be ordered: No Reason for no VTE drug order: Treatment not indicated Reason for no VTE mechanical prophylaxis: Treatment not indicated
[2019-01-10] MEDS ORDERED: ACETAMINOPHEN 325 MG TAB PO PRN (23:56)
--- NOTE | 2019-01-11 01:59 | Emergency Department Note ---
Entered by Zunilda Johnston acting as a scribe for Jaime Hooper MD ED Provider Note CHIEF COMPLAINT: Shoulder pain HISTORY OF PRESENT ILLNESS: The patient is a 28 year old female who presents to the Emergency Room with complaints of constant left shoulder pain. She reports that the pain radiates down her left side. The patient rates that pain as a 9/10 in severity. She denies relieving factors. She notes that deep breaths worsen the pain. The patient complains of lightheadedness and left-sided chest pain. Pt denies LOC, headache, fevers, chills, diaphoresis, visual changes, neck pain, breathing difficulties, nausea, vomiting, abdominal pain, back pain, melena, hematochezia, urinary symptoms, numbness, weakness, lymphadenopathy, rash, or other complaints. She notes that she recently traveled to [place]. The patient denies any recent trauma. REVIEW OF SYSTEMS: See HPI for pertinent positives and negatives. A total of ten systems were reviewed and were otherwise negative. PMHx/PSHx: Pyelonephritis, depression SOCIAL HISTORY: Patient lives at home. PHYSICAL EXAM: GENERAL: Awake, alert, uncomfortable-appearing, in no distress HENT: Normocephalic, atraumatic. Oropharynx unremarkable. EYES: PERRL. Normal conjunctiva. Sclera non-icteric. NECK: Inspection normal. Non-tender. Supple. No nuchal rigidity. FROM. No masses. RESPIRATORY: Clear to auscultation. No wheezes. No rales. Normal respiratory effort. CARDIAC: Normal rate. Normal rhythm. No murmurs. No rubs. Extremities warm and well perfused. Pulses equal. No JVD. GI: Soft, non-distended. No tenderness to palpation. No rebound or guarding. No masses. RECTAL: Deferred. MUSCULOSKELETAL: Atraumatic. Chest examination reveals no tenderness. The back is symmetrical on inspection without obvious abnormality. There is no CVA tenderness to palpation. No joint edema. LOWER EXTREMITIES: Calves are equal size bilaterally and non-tender. No edema. No discoloration. NEURO: Normal sensorium. No sensory or motor deficits noted. SKIN: No rash or jaundice noted. EMERGENCY DEPARTMENT COURSE: 1747: Past medical records reviewed. The patient was evaluated in room A04, and a complete history and physical examination were performed. 1933: I updated the patient, and she stated that she was feeling improved. She will be going to CT scan soon. 2044: I spoke with Dr. Rios, [facility] hospitalist, about the patients case. He will further evaluate the patient. Dr. Rios requested Lovenox over IV Heparin. 2048: I reassessed and updated the patient. MEDICAL DECISION MAKING: Prior records/ancillary studies reviewed. Triage Nursing notes reviewed and agree them. Additional history obtained from the family. The patient's history was concerning for chest pain. Differential diagnosis: Etiologies such as cardiac ischemia, aortic dissection, pulmonary embolism, pneumonia, pneumothorax, musculoskeletal, infections, pericarditis, myocarditis, esophageal rupture, gastrointestinal, as well as others were entertained. Physical examination: As above. ER treatment provided: IV Dilaudid IV Zofran Cardiac monitoring On reassessment the patient felt better. Subcutaneous Lovenox after consultation with internal medicine. Diagnostic interpretation by me: The electrocardiogram was negative for pathologic change. The labs revealed an unremarkable CBC and chemistry panel. Troponin negative. D-dimer elevated. Hypercoagulability labs sent. Imaging studies: Chest x-ray was negative. CT PE study was performed and revealed bilateral pulmonary emboli. Consultation: A consultation was placed with the hospitalist, Dr. Jaime Rios. The case was discussed and diagnostics were reviewed. He requested the patient be started on Lovenox. This was ordered. The patient was evaluated in the ER for further chencho atment. IMPRESSION: Bilateral pulmonary emboli, left-sided chest pain PLAN: Further evaluation by hospitalist The scribe's documentation has been prepared under my direction and personally reviewed by me in its entirety. I confirm that the note above accurately reflects all work, treatment, procedures, and medical decision making performed by me. CRITICAL CARE: I have personally spent greater than 30 minutes of critical care time in the direct management of this patient. This includes bedside care, interpretation of diagnostic studies, and testing, discussion with consultants, patient, and family members, and other required patient management activities. This 30 minutes is in excess of all separately billable procedures. 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 Required: No Beliefs That Will Affect Care: None Current Living Situation: Spouse Other Information That Helps Us Care for You: No Feels Safe at Home: Yes Safety Concerns: Feels Safe At This Time Smoking Status: Never smoker Hx Alcohol Use: Yes Hx Substance Use: No Results & Data Vital Signs Vital Signs - 24 hr 01/10/19 16:05 01/10/19 17:45 01/10/19 18:00 Temperature 36.7 C Temperature Source Oral Sepsis Recent Fever Within 48 Hours No Sepsis New/Unexplained Change in Mental Status No Sepsis Action Taken by Nursing No Action Required Pulse Rate 93 H Pulse Rate [Right Finger] 78 Pulse Rhythm Regular Pulse Rhythm [Right Finger] Pulse Strength Normal Respiratory Rate 20 18 Respiratory Effort / Characteristics Non-Labored Spontaneous Non-Labored Spontaneous Respiratory Depth Normal Normal Respiratory Pattern Regular Regular Blood Pressure 145/84 H Blood Pressure [Right Arm] 116/89 Blood Pressure Mean 104 Blood Pressure Mean [Right Arm] 98 Blood Pressure Position Sitting Blood Pressure Position [Right Arm] Sitting Pulse Oximetry 100 100 100 Oxygen Delivery Method Room Air Room Air Room Air 01/10/19 19:59 01/10/19 21:00 01/10/19 22:53 Temperature Temperature Source Sepsis Recent Fever Within 48 Hours Sepsis New/Unexplained Change in Mental Status Sepsis Action Taken by Nursing Pulse Rate Pulse Rate [Right Finger] 82 87 79 Pulse Rhythm Pulse Rhythm [Right Finger] Regular Pulse Strength Respiratory Rate 18 20 20 Respiratory Effort / Characteristics Non-Labored Spontaneous Non-Labored Spontaneous Respiratory Depth Normal Normal Respiratory Pattern Regular Regular Blood Pressure Blood Pressure [Right Arm] 122/82 123/81 111/79 Blood Pressure Mean Blood Pressure Mean [Right Arm] 95 95 89 Blood Pressure Position Blood Pressure Position [Right Arm] Sitting Sitting Sitting Pulse Oximetry 99 99 98 Oxygen Delivery Method Room Air Room Air Room Air Home Medications Current Medication List: was personally reviewed by me Laboratory Data Attestation: I reviewed the patient's lab results. Result diagrams: 01/10/19 18:14 01/10/19 18:14 Lab Results 01/10/19 01/10/19 01/10/19 Range/Units 18:14 18:14 18:14 WBC 7.88 (4.8-10.8) K/uL RBC 4.62 (4.2-5.4) M/uL Hgb 13.9 (12.0-16.0) g/dL Hct 41.8 (37-47) % MCV 90.5 (80-100) fL MCH 30.1 (25-34) pg MCHC 33.3 (32-36) g/dL RDW Std Deviation 45.3 (36.4-46.3) fL RDW Coeff of Arnoldo 13.8 (11.5-14.5) % Plt Count 231 (130-400) K/uL MPV 10.6 H (7.4-10.4) fL Immature Gran % (Auto) 0.3 % Neut % (Auto) 64.2 % Lymph % (Auto) 23.7 % [place] % (Auto) 9.9 % Eos % (Auto) 1.5 % Baso % (Auto) 0.4 % Immature Gran # (Auto) 0.02 (0.00-0.02) K/uL Neut # (Auto) 5.06 (1.4-6.5) K/uL Lymph # (Auto) 1.87 (1.2-3.4) K/uL [place] # (Auto) 0.78 H (0.11-0.59) K/uL Eos # (Auto) 0.12 (0-0.5) K/uL Baso # (Auto) 0.03 (0-0.2) K/uL PT (9.0-12.0) Seconds INR (0.9-1.1) APTT (21.0-31.0) Seconds PTT Ratio POC D-Dimer (0-450) ng/mlFEU Sodium 138 (136-145) mmol/L Potassium 3.8 (3.5-5.1) mmol/L Chloride 104 (98-107) mmol/L Carbon Dioxide 28 (21-32) mmol/L Anion Gap 6.0 (3-11) BUN 13 (7-18) mg/dl Creatinine 0.74 (0.6-1.2) mg/dl Est Cr Clr Drug Dosing 150.8 ml/min Est GFR ( Amer) 126.0 Est GFR (Non-Af Amer) 108.7 BUN/Creatinine Ratio 17.6 (10-20) Glucose 90 (70-99) mg/dl Calcium 8.9 (8.5-10.1) mg/dl Total Bilirubin 0.7 (0.2-1) mg/dl AST 12 L (15-37) U/L ALT 26 (12-78) U/L Alkaline Phosphatase 90 (45-117) U/L Troponin I < 0.015 (0-0.045) ng/ml Total Protein 7.6 (6.4-8.2) gm/dl Albumin 3.6 (3.4-5.0) gm/dl Globulin 4.0 (2.5-4.0) gm/dl Albumin/Globulin Ratio 0.9 (0.9-2) Lipase 123 (73-393) U/L HCG, Qual Negative (Negative) 01/10/19 01/10/19 Range/Units 18:14 18:25 WBC (4.8-10.8) K/uL RBC (4.2-5.4) M/uL Hgb (12.0-16.0) g/dL Hct (37-47) % MCV (80-100) fL MCH (25-34) pg MCHC (32-36) g/dL RDW Std Deviation (36.4-46.3) fL RDW Coeff of Arnoldo (11.5-14.5) % Plt Count (130-400) K/uL MPV (7.4-10.4) fL Immature Gran % (Auto) % Neut % (Auto) % Lymph % (Auto) % [place] % (Auto) % Eos % (Auto) % Baso % (Auto) % Immature Gran # (Auto) (0.00-0.02) K/uL Neut # (Auto) (1.4-6.5) K/uL Lymph # (Auto) (1.2-3.4) K/uL [place] # (Auto) (0.11-0.59) K/uL Eos # (Auto) (0-0.5) K/uL Baso # (Auto) (0-0.2) K/uL PT 10.0 (9.0-12.0) Seconds INR 1.0 (0.9-1.1) APTT 27.4 (21.0-31.0) Seconds PTT Ratio 1.0 POC D-Dimer > 450 H* (0-450) ng/mlFEU Sodium (136-145) mmol/L Potassium (3.5-5.1) mmol/L Chloride (98-107) mmol/L Carbon Dioxide (21-32) mmol/L Anion Gap (3-11) BUN (7-18) mg/dl Creatinine (0.6-1.2) mg/dl Est Cr Clr Drug Dosing ml/min Est GFR ( Amer) Est GFR (Non-Af Amer) BUN/Creatinine Ratio (10-20) Glucose (70-99) mg/dl Calcium (8.5-10.1) mg/dl Total Bilirubin (0.2-1) mg/dl AST (15-37) U/L ALT (12-78) U/L Alkaline Phosphatase (45-117) U/L Troponin I (0-0.045) ng/ml Total Protein (6.4-8.2) gm/dl Albumin (3.4-5.0) gm/dl Globulin (2.5-4.0) gm/dl Albumin/Globulin Ratio (0.9-2) Lipase (73-393) U/L HCG, Qual (Negative) Administered Medications Ioversol (Optiray 320 125ml) 116 ml IV ONCE PRN PRN Reason: Interaction Checking Stop: 01/14/19 19:48 Last Admin: 01/10/19 19:49 Dose: 116 ml Documented by: [id number] Discontinued Medications Enoxaparin Sodium (Lovenox) 111 mg SQ NOW ONE Stop: 01/10/19 20:52 Last Admin: 01/10/19 21:19 Dose: 111 mg Documented by: [id number] Hydromorphone HCl (Dilaudid) 0.5 mg IV Q15M PRN PRN Reason: Pain Stop: 01/24/19 17:49 Last Admin: 01/10/19 21:24 Dose: 0.5 mg Documented by: [id number] Admin: 01/10/19 18:19 Dose: 0.5 mg Documented by: [id number] Ketorolac Tromethamine (Toradol) 10 mg IV NOW ONE Stop: 01/10/19 17:51 Last Admin: 01/10/19 18:18 Dose: 10 mg Documented by: [id number] Ondansetron HCl (Zofran) 4 mg IV NOW STA Stop: 01/10/19 17:51 Last Admin: 01/10/19 18:18 Dose: 4 mg Documented by: [id number] Imaging Data Radiologist's Impression: Radiology results as stated below per my review and the radiologist's interpretation: XR chest 1V portable CLINICAL HISTORY: Chest pain. COMPARISON STUDY: Chest radiograph and chest CT May 26, 2011. FINDINGS: Lung volumes are diminished. There is no pneumothorax or pleural effusion. There is no consolidation or evidence for pulmonary edema. Cardiomed iastinal silhouette is normal. IMPRESSION: No acute cardiopulmonary findings. Electronically signed by: Wilberto Daniels M.D. 01/10/2019 5:[address] angio chest PE protocol CLINICAL HISTORY: 28 years-old Female presenting with Left chest pain, +dimer, ? PE. TECHNIQUE: Multidetector CT angiography of the chest was performed after administration of intravenous contrast. 3-D volumetric and/or maximum intensity projection (MIP) images were subsequently reconstructed for review. IV contrast: 116 mL of Optiray 320. One or more dose lowering techniques were used consistent with the principles of ALARA (as low as reasonably achievable), including automatic exposure control, mA or kV adjustment to individual patient size, and/or use of iterative reconstruction. COMPARISON: 05/26/2011. CT DOSE (mGy.cm): The estimated cumulative dose is 519.72 mGy.cm. FINDINGS: Steam Turbine Operator topogram: Unremarkable. Pulmonary vasculature: The study is suboptimal for the assessment of the pulmonary vascular tree secondary to timing of the contrast bolus and respiratory motion artifact. Acute segmental and subsegmental pulmonary emboli in the lower lobes. Main pulmonary artery is not enlarged. No flattening of the interventricular septum. No intracardiac filling defect. No reflux of contrast into the hepatic veins. Remaining chest: Soft tissues: Normal thyroid and thoracic inlet. No axillary, supraclavicular, mediastinal, or hilar lymphadenopathy. Normal aorta. Normal heart size. No pericardial or pleural effusion. Upper abdomen normal. Lungs and airways: No pneumothorax. Central airways patent. Pulmonary arteries are not significantly enlarged relative to adjacent bronchi. No interlobular septal thickening. Patchy groundglass opacity with mild mosaic attenuation. This may in part relate to the phase of respiration though a vascular etiology could also have this appearance. More nodular patchy infiltration in the lingula with a focal solid round 5 mm nodule (series 4 image 65), previously 3 mm. Musculoskeletal: Normal osseous structures. IMPRESSION: 1. Acute segmental and subsegmental pulmonary emboli in the bilateral lower lobes. No CT evidence of right heart strain. 2. Patchy groundglass opacities and/or mosaic attenuation may relate to the presence of pulmonary emboli and/or the phase of respiration. 3. More nodular patchy infiltrate in the lingula with a focal solid 5 mm nodule. Notably, Fleischner Society 2017 criteria do not apply in the setting of a patient less than 35 years of age. Follow-up on clinical grounds. This may represent an infectious or inflammatory etiology. Electronically signed by: Gustavo Gotti M.D. 01/10/2019 7:59 PM ECG Data Attestation: I personally reviewed and interpreted this ECG as follows: Indication: back/shoulder pain Rate (beats per minute): 90 Rhythm: normal sinus Findings: + other (no pericarditis); no PAC, no PVC, no ST depression and no ST elevation Blood Pressure Blood Pressure Findings: Elevated blood pressure Blood Pressure Disposition: further management by hospitalist Discharge Plan Visit Data *Final* Discharge Date/Time: 01/10/19 23:38 Chief Complaint: Pain (Generalized) Stated Complaint: LEFT SIDED PAIN, HURTS TO BREATH ED Provider: Jaime Hooper Discharge Problem: Pulmonary embolism, bilateral, Left-sided chest pain Patient Disposition: Admitted As Inpatient Discharge Instructions Interventions: ED Discharge Assessment Last Done: 01/10/19 23:38 The scribe's documentation has been prepared under my direction and personally reviewed by me in its entirety. I confirm that the note above accurately reflects all work, treatment, procedures, and medical decision making performed by me.
[2019-01-11] MEDS ORDERED: TRAMADOL HCL 50 MG TABLET PO PRN (02:12)
[2019-01-11] MEDS: HYDROmorphone INJ 0.5 MG/0.5 ML SYR IV PRN ×3 (02:21→15:39)
[2019-01-11 07:01] LABS: Pregnancy Test, Urine Negative (Negative)
--- NOTE | 2019-01-11 07:53 | Ultrasound Report ---
US venous doppler LE BI CLINICAL HISTORY: pulmonary emboli COMPARISON STUDY: 05/26/2011 FINDINGS: Real-time and color flow Doppler imaging were performed. Flow was seen within the femoral, popliteal and calf veins with no intraluminal thrombus demonstrated. The saphenous vein is patent. IMPRESSION: No evidence of lower extremity DVT. Electronically signed by: Luis Mitchell M.D. 01/11/2019 7:52 AM
[2019-01-11] MEDS ORDERED: SERTRALINE HCL 50 MG TABLET PO SCH (09:00)
[2019-01-11] MEDS ORDERED: CHOLECALCIFEROL 1,000 UNITS TAB PO SCH (09:00)
[2019-01-11] MEDS ORDERED: KETOROLAC TROMETHAMINE 15 MG/ML VIAL IV ONE (09:23)
[2019-01-11] MEDS: ONDANSETRON INJ 2 MG/ML 2 ML VIAL IV PRN ×2 (09:38→15:39)
[2019-01-11] MEDS ORDERED: ENOXAPARIN INJ 120 MG/0.8 ML SYR SQ SCH (10:00)
--- NOTE | 2019-01-11 14:05 | Hospitalist Progress Note ---
Date of Service January 11, 2019 Assessment & Plan (1) Pulmonary embolism, bilateral: Present on admission with chest pain associated with SOB CTA of chest demonstrated bilateral segmental subsegmental pulmonary emboli. Had recent driven to [place] No clinical evidence of RV strain. Doppler of LE extremitres showed no evidence for PE Hypercoagulable work up pending Starting on Lovenox therapeutic dose Will transition to Eliquis Case management checked the cost for eliquis and would be $15/month Anticoagulant risks discussed with patient such as bleeding (blood in stools and urine) and avoid risk of fall (2) Pulmonary nodule: 5 mm lingular nodule noted on CT of chest. Non-smoker. No history of malignancy. Fleischner Society 2017 guidelines do not apply to patients under the age of 35. Would be prudent to check follow-up CT, perhaps in 6 months. (3) Asthma: Stable. (4) DVT prophylaxis: On Lovenox (5) Discharge planning issues: Discharge home today Follow up with Dr. Ramirez Subjective Pt was seen and examined Lying in bed with no distress Pt said that her pain improves with the pain med She denies any SOB, palpitation and dizziness Physical Exam Physical Exam: General- No acute distress Head- atraumatic Eyes- PERRL, EOMI, ENT- oropharynx clear Neck- supple, no JVD Lungs- clear to auscultation Heart- regular rhythm; no murmur Abdomen- normal bowel sounds, soft, nontender Extremities- no calf tenderness Neuro- alert, oriented x 3; PERRL, EOMI; no facial palsy; no dysarthria Skin- warm & dry Results & Data Vital Signs (Past 12 Hours) Vital Signs Temp Pulse Pulse Resp BP Pulse Ox 01/11/19 11:43 36.6 C 76 18 121/77 98 01/11/19 07:52 36.8 C 82 19 125/83 98 01/11/19 03:02 36.7 C 83 18 106/71 97
[2019-01-11] MEDS ORDERED: APIXABAN 5 MG TABLET PO SCH (18:00)
[2019-01-11] MEDS ORDERED: APIXABAN 5 MG TABLET PO ONE (18:22)
[2019-01-12] MEDS ORDERED: APIXABAN 5 MG TABLET PO SCH (06:00)
--- NOTE | 2019-01-13 08:57 | Discharge Summary ---
Date of Service January 11, 2019 Admission HPI Per Admitting Provider 28-year-old female followed by Dr. Julissa Julian. She enjoys relatively good health except for a few problems as noted below. A few days prior to admission she noted some mid chest pressure. Today she experience more severe chest pain that involved the left shoulder/left chest and was worse with inspiration. Rates the pain at 9 on a 0-to-10 scale. Dyspneic at rest and with exertion. No fever or cough. No leg pain or swelling. Recently traveled to [place] by car; no long trips. Non-smoker. She does not use any control pills or other hormonal preparations. No family history of VTE. Admission Exam Per Admitting Provider Constitutional: + weight loss (intentional); no fever Eyes: no diplopia and no worsening vision Ear, Nose, Mouth, Throat: no nasal congestion, no sinus pain/pressure and no sore throat Respiratory: as per Subjective / HPI Cardiovascular: as per Subjective / HPI Gastrointestinal: no nausea, no vomiting, no constipation, no diarrhea/loose stools, no blood in stools and no melena Genitourinary: no dysuria and no hematuria Musculoskeletal: no joint pain and no myalgia Integumentary: no rash and no new lesions Neurologic: + headache(s) Endocrine: no polydipsia and no polyuria Hematologic / Lymphatic: no easy bleeding, no easy bruising and no lymphadenopathy Principal Diagnosis Pulmonary embolism, bilateral Pulmonary nodule Asthma Discharge Exam General- No acute distress Head- atraumatic Eyes- PERRL, EOMI, ENT- oropharynx clear Neck- supple, no JVD Lungs- clear to auscultation Heart- regular rhythm; no murmur Abdomen- normal bowel sounds, soft, nontender Extremities- no calf tenderness Neuro- alert, oriented x 3; PERRL, EOMI; no facial palsy; no dysarthria Skin- warm & dry Discharge Data Allergies Allergy/AdvReac Type Severity Reaction Status Date / Time amoxicillin Allergy Unknown Hives Verified 01/10/19 17:59 Penicillins Allergy Unknown Hives Verified 01/10/19 17:59 codeine AdvReac Mild Nausea Verified 01/10/19 17:59 Consultations 01/10/19 20:54 ED Decision to Admit Stat Ordered Studies 01/10/19 19:24 CT angio chest PE protocol Stat 01/11/19 02:39 US venous doppler LE BI Routine US venous doppler LE BI CLINICAL HISTORY: pulmonary emboli COMPARISON STUDY: 05/26/2011 FINDINGS: Real-time and color flow Doppler imaging were performed. Flow was seen within the femoral, popliteal and calf veins with no intraluminal thrombus demonstrated. The saphenous vein is patent. IMPRESSION: No evidence of lower extremity DVT. Electronically signed by: Luis Mitchell M.D. 01/11/2019 7:52 AM Dictated: 01/11/19 0749 Transcribed: 01/11/[address] angio chest PE protocol CLINICAL HISTORY: 28 years-old Female presenting with Left chest pain, +dimer, ? PE. TECHNIQUE: Multidetector CT angiography of the chest was performed after adm inistration of intravenous contrast. 3-D volumetric and/or maximum intensity projection (MIP) images were subsequently reconstructed for review. IV contrast: 116 mL of Optiray 320. One or more dose lowering techniques were used consistent with the principles of ALARA (as low as reasonably achievable), including automatic exposure control, mA or kV adjustment to individual patient size, and/or use of iterative reconstruction. COMPARISON: 05/26/2011. CT DOSE (mGy.cm): The estimated cumulative dose is 519.72 mGy.cm. FINDINGS: [employer] topogram: Unremarkable. Pulmonary vasculature: The study is suboptimal for the assessment of the pulmonary vascular tree secondary to timing of the contrast bolus and respiratory motion artifact. Acute segmental and subsegmental pulmonary emboli in the lower lobes. Main pulmonary artery is not enlarged. No flattening of the interventricular septum. No intracardiac filling defect. No reflux of contrast into the hepatic veins. Remaining chest: Soft tissues: Normal thyroid and thoracic inlet. No axillary, supraclavicular, mediastinal, or hilar lymphadenopathy. Normal aorta. Normal heart size. No pericardial or pleural effusion. Upper abdomen normal. Lungs and airways: No pneumothorax. Central airways patent. Pulmonary arteries are not significantly enlarged relative to adjacent bronchi. No interlobular septal thickening. Patchy groundglass opacity with mild mosaic attenuation. This may in part relate to the phase of respiration though a vascular etiology could also have this appearance. More nodular patchy infiltration in the lingula with a focal solid round 5 mm nodule (series 4 image 65), previously 3 mm. Musculoskeletal: Normal osseous structures. IMPRESSION: 1. Acute segmental and subsegmental pulmonary emboli in the bilateral lower lobes. No CT evidence of right heart strain. 2. Patchy groundglass opacities and/or mosaic attenuation may relate to the presence of pulmonary emboli and/or the phase of respiration. 3. More nodular patchy infiltrate in the lingula with a focal solid 5 mm nodule. Notably, Fleischner Society 2017 criteria do not apply in the setting of a patient less than 35 years of age. Follow-up on clinical grounds. This may represent an infectious or inflammatory etiology. Electronically signed by: Gustavo Gotti M.D. 01/10/2019 7:59 PM Dictated: 01/10/191953 Transcribed: 01/10/191953 XR chest 1V portable CLINICAL HISTORY: Chest pain. COMPARISON STUDY: Chest radiograph and chest CT May 26, 2011. FINDINGS: Lung volumes are diminished. There is no pneumothorax or pleural effusion. There is no consolidation or evidence for pulmonary edema. Cardiomediastinal silhouette is normal. IMPRESSION: No acute cardiopulmonary findings. Electronically signed by: Wilberto Daniels M.D. 01/10/2019 5:59 PM Dictated: 01/10/191757 Transcribed: 01/10/191757 Hospital Course (1) Pulmonary embolism, bilateral: Present on admission with chest pain associated with SOB CTA of chest demonstrated bilateral segmental subsegmental pulmonary emboli. Had recent driven to [place] No clinical evidence of RV strain. Doppler of LE extremitres showed no evidence for PE Hypercoagulable work up pending Starting on Lovenox therapeutic dose Will transition to Eliquis Case management checked the cost for eliquis and would be $15/month Anticoagulant risks discussed with patient such as bleeding (blood in stools and urine) and avoid risk of fall (2) Pulmonary nodule: 5 mm lingular nodule noted on CT of chest. Non-smoker. No history of malignancy. Fleischner Society 2017 guidelines do not apply to patients under the age of 35. Would be prudent to check follow-up CT, perhaps in 6 months. (3) Asthma: Stable. (4) DVT prophylaxis: On Lovenox (5) Discharge planning issues: Discharge home today Follow up with Dr. Ramirez Total Time Total Time Spent Total Time Spent (In Minutes): 35 minutes Total Time Includes: Examination of the Patient, Discharge Planning, Medication Reconciliation, Communication With Other Providers and Other Discharge Plan Discharge Items Patient Disposition: Home - Self-Care Reason For Visit: PULMONARY EMBOLI Discharge Diagnosis: Pulmonary embolism, bilateral Pulmonary nodule Asthma Discharge Goals: Decrease discomfort Activity: Resume your previous activity Non-emergency contact: Primary Care Provider Call non-emergency contact if: you have any medication questions Follow-up/Referrals: Julissa Julian DO [Primary Care Provider] - Diet: Regular Addtl Provider Instructions: Follow up with your primary care provider within 1 week Continue Eliquis 10mg twice a day for 7 day, then after 7 days eliquis 5 mg twice a day Hypercoagulable work up pending (your physician will discuss the result with you at next appointment) Monitor for any abnormal bleeding such as dark stool or blood in your urine (notify your physician if you experience any abnormal bleeding) (Pharmacy will dispense 3 doses for eliquis to take home until you fill your prescription) Fall precaution Please do not operate any machine while on narcotic Hold next dose if you become drowsy or lethargy Ok to use tylenol for pain Medication Instructions: Eliquis Your condition is typically treated with an anticoagulant. Anticoagulants will thin your blood to help prevent new clots. You should take her medication exactly as directed. Never skip a dose. Never take a double dose. If you miss a dose, take it as soon as you remember. Avoid NSAIDs (Motrin, Aleve, Naproxen, Ibuprofen, Advil, Meloxicam,..) due to risks of bleeding Call your Primary Care doctor if you experience any of the following: Swelling or Pain in your leg Sudden, continuous pain deep in a muscle Pain that worsens when you are active or when you stand still for a long time Chest Pain Sudden Shortness of Breath Rapid or pounding heart beat Fainting Dizziness Cough with blood or bloody sputum Sweating more than normal Bruises Heavy or uncontrolled bleeding Blood in your urine, stool or vomit Black or tarry stools It is important for you to keep your follow up appointments with your medical provider. Prescriptions: New Eliquis 5 mg (74 tabs) tablets,dose pack 5 mg PO UD Qty: 74 RF: 0 oxycodone 5 mg capsule 5 mg PO Q8H PRN (Reason: pain) Qty: 9 RF: 0 Continued ranitidine HCl 150 mg Tablet 150 mg PO BID RF: 0 sertraline 50 mg Tablet 50 mg PO DAILY RF: 0 cholecalciferol (vitamin D3) [Vitamin D3] 1,000 unit Tablet 1,000 unit PO DAILY RF: 0 Stand-Alone Forms: [facility] Discharge Orders: Discharge Order (Routine); Ordered 01/11/19 Ordered By: Mayito Ferrer Admission Data Admit Date/Time: 01/10/19 23:01 Attending Provider: Mayito Ferrer Admit Provider: Jaime Rios Primary Care Provider: Julissa Julian Service: Telemetry Other Interventions: Discharge Summary Assessment (RN) Last Done: 01/11/19 18:00 DC Date/Time DO NOT enter until pt leaves facility: 01/11/19 18:23
[2019-01-15 16:43] LABS: Anti Cardiolipin Ab IgG <14 GPL (< = 14); Anti Cardiolipin Ab IgM <12 MPL (< = 12); Anti-Cardiolipin Ab IgA <11 APL (< = 11); Anti-Thrombin III Activity 116 % activity (80-120); B2 Glycoprotein IgA <9 SAU (<=20); B2 Glycoprotein IgG <9 SGU (<=20); B2 Glycoprotein IgM <9 SMU (<=20); Lupus Anticoagulant Negative (Negative); Protein S Functional(Activity) 76 % (60-140)
== END 2019-01-11 18:23 | disposition home or self-care (01) | DRG 176 ==
LOC: ED 15:54 → 2S 23:01
DX: R91.1 Solitary pulmonary nodule; I26.99 Other pulmonary embolism without acute cor pulmonale; Z88.0 Allergy status to penicillin; Z88.5 Allergy status to narcotic agent; J45.909 Unspecified asthma, uncomplicated; F32.9 Major depressive disorder, single episode, unspecified; Z79.899 Other long term (current) drug therapy